=== PATIENT | female | born 2000 | race Two or more races ===

== ENCOUNTER 2022-03-29 01:25 | Emergency (ER) | payer MEDICAID, OTHER ==
[~2022-03-29] VITALS: Ht 175.3 cm; Wt 104.3 kg
[2022-03-29 02:23] LABS: Alanine Aminotransferase 69 U/L (13-56); Albumin 3.9 g/dL (3.4-5.0); Anion Gap 9 (5-15); Aspartate Aminotransferase 70 U/L (15-37); BUN/Creatinine Ratio 7.1; Blood Alcohol < 3.0 mg/dL (0-5); Blood Urea Nitrogen 6 mg/dL (7-18); Calcium 9.4 mg/dL (8.5-10.1); Carbon Dioxide 21 mmol/L (21-32); Chloride 110 mmol/L (98-107); GFR African American 112 mL/min; GFR Non-African American 93 mL/min; Glucose 99 mg/dL (74-106); Magnesium 1.9 mg/dL (1.6-2.6); Potassium 3.9 mmol/L (3.5-5.1); Sodium 140 mmol/L (136-145)
[2022-03-29 02:25] LABS: Alkaline Phosphatase 65 U/L (45-117); Bilirubin, Total 0.5 mg/dL (0.2-1.0); Salicylate < 1.7 mg/dL (2.8-20.0); Total Protein 8.4 g/dL (6.4-8.2)
[2022-03-29 02:29] LABS: Mean Corpuscular Hgb Conc. 33.6 g/dL (32.0-36.0)
[2022-03-29 02:30] LABS: Basophils # (auto) 0.1 10 ^3/uL (0-0.2); Basophils % (auto) 1.1 % (0.0-2.0); Eosinophils # (auto) 0.4 10 ^3/uL (0-0.8); Eosinophils % (auto) 4.1 % (0.0-7.0); Hematocrit 42.8 % (36.0-46.0); Hemoglobin 14.4 g/dL (12.2-16.2); Lymphocytes # (auto) 3.8 10 ^3/uL (0.4-5.4); Lymphocytes % (auto) 37.2 % (10.0-50.0); Mean Corpuscular Hemoglobin 26.4 pg (28.0-32.0); Mean Corpuscular Volume 78.7 fL (80.0-100.0); Monocytes # (auto) 0.6 10 ^3/uL (0-1.3); Monocytes % (auto) 6.2 % (0.0-12.0); Neutrophils # (auto) 5.3 10 ^3/uL (1.6-8.6); Neutrophils % (auto) 51.4 % (37.0-80.0); Nucleated Red Blood Cells % 0.1 %; Red Blood Cells 5.43 10^6/uL (4.0-5.20); Red Cell Distribution Width 15.3 % (11.8-14.3); White Blood Cell 10.2 10^3/uL (4.4-10.8)
[2022-03-29 02:35] LABS: Acetaminophen < 2.0 ug/mL (10-30)
[2022-03-29] MEDS ORDERED: SODIUM CHLORIDE 0.9% 1,000 ML IV ONE (03:00)
[2022-03-29] MEDS ORDERED: LORazepam 2MG/ML-1ML VIAL IV ONE (03:00)
[2022-03-29 03:48] LABS: Amphetamine Screen, Urine NEGATIVE (NEGATIVE); Barbiturate Scree,Urine NEGATIVE (NEGATIVE); Benzodiazephine Screen, Urine NEGATIVE (NEGATIVE); Cannabinoid Screen, Urine POSITIVE (NEGATIVE); Cocaine Screen, Urine NEGATIVE (NEGATIVE); Opiate Scree,Urine NEGATIVE (NEGATIVE); Phencyclidine Screen, Urine NEGATIVE (NEGATIVE)
[2022-03-29 03:53] LABS: Urine Bacteria FEW /hpf (None Seen); Urine Blood 3+ /uL (Negative); Urine Specific Gravity 1.008 (1.001-1.035); Urine WBC 4 /hpf (0 - 5)
[2022-03-29 03:56] LABS: Alcohol, Urine < 3.0 mg/dL (0-10)
[2022-03-29 05:51] VITALS: BP 145/81
== END 2022-03-29 07:06 | disposition home or self-care (01) ==
LOC: ER 01:25
DX: F12.10 Cannabis abuse, uncomplicated (principal); F14.10 Cocaine abuse, uncomplicated; T40.995A Adverse effect of other psychodysleptics [hallucinogens], initial encounter; Y92.89 Other specified places as the place of occurrence of the external cause
CPT/HCPCS: 36415; 80053; 80307; 80320; 80329; 81001; 81025; 83735; 85025; 93005; 96361; 96374; 99284; J2060; J7030